=== PATIENT | male | born 1980 | race Caucasian/White ===

== ENCOUNTER 2019-12-10 19:30 | Emergency (ER) | payer OTHER, SELFPAY ==
[2019-12-10 19:31] VITALS: BP 152/87; PULSE 78; RESP 18; TEMP 37.1; O2SAT 99; BMI 27.3
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
[2019-12-10] MEDS: Acetaminophen 325 MG Tablet 650 MG PO (20:23)
--- NOTE | 2019-12-10 20:35 | ED.RN ---
pt aware [facility] is here for . dr. javier aware pt wants to leave post [facility] pt un[facility]ed and taken post scans to see . IV removed while in room 2 with . ambulates out of er with mother at 2024
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
== END 2019-12-10 20:49 | disposition home or self-care (01) ==
PROVIDERS: Emergency Provider Emergency Medicine; PCP Family Medicine
DX: R51 Headache (principal); S20.211A Contusion of right front wall of thorax, initial encounter; V89.2XXA Person injured in unspecified motor-vehicle accident, traffic, initial encounter
CPT/HCPCS: 70450; 71046; 99283

== ENCOUNTER 2021-02-28 16:50 | Emergency (ER) | payer OTHER, SELFPAY ==
[2021-02-28 16:52] VITALS: BP 152/87; PULSE 74; RESP 16; TEMP 36.1; O2SAT 100; BMI 25.2
--- NOTE | 2021-02-28 17:11 | CT_ITS ---
STUDY: CTA CHEST REASON FOR EXAM: Male, 40 years old. Shortness of breath. COVID positive. Pleuritic pain. RADIATION DOSAGE (If Supplied By Facility): CTDIvol = ( 12.94 ) mGy, DLP = ( 463.08 ) mGycm TECHNIQUE: The examination was performed with the intravenous administration of IV 100mL Isovue-370. Post-processing of the angiographic images was performed, with multiplanar reformation and 3D reconstruction. Individualized dose optimization techniques were used for this CT. COMPARISON: Chest, 12/10/2019. FINDINGS: Normal enhancement of the main pulmonary artery and right and left pulmonary arteries. Normal enhancement of the bilateral peripheral pulmonary arteries. There is no demonstrated pulmonary embolism. Normal thoracic aorta and visualized great vessels. There is no demonstrated aortic dissection. Normal heart and pericardium. Normal mediastinum. Normal hilar regions. Normal visualized trachea and bronchi. The lungs are well expanded. Dependent changes versus early groundglass infiltrate posteriorly at the right lung base. Lungs are otherwise clear. Normal pleura. Normal chest wall structures. Normal osseous structures. Normal visualized upper abdomen. CT/CTA Chest W/WO Contrast IMPRESSION: 1. No evidence of pulmonary embolus. 2. No aortic dissection or aneurysm. 3. Dependent changes versus early infiltrate peripherally at the right lung base. Electronically Signed: Luis Eduardo Davis DO at 18:38 EDT Tel [phone], Service support ,
--- NOTE | 2021-02-28 17:11 | EKG12_ITS ---
Test Reason : SOB Blood Pressure : / mmHG Vent. Rate : 074 BPM Atrial Rate : 074 BPM P-R Int : 144 ms QRS Dur : 110 ms QT Int : 408 ms P-R-T Axes : 055 064 045 degrees QTc Int : 452 ms Normal sinus rhythm Normal ECG Confirmed by ABBY MARTINEZ, CRISTAL ([id number]), graphics editor TYLOR TREVINO ([id number]) on 03/05/2021 7:47:40 AM Referred By: OMAR Confirmed By:CRISTAL MORA MD
--- NOTE | 2021-02-28 17:12 | EX.ED.DYSGE1 ---
HPI History of Present Illness Chief Complaint: Shortness of Breath Informant: patient Onset/Context/Timing Onset: Yesterday Current Severity: Moderate Maximum Severity: Moderate Narrative Narrative: Patient presents secondary to increased shortness of breath with positive Covid status. Patient states he developed symptoms of Covid and tested positive on February 17. He states yesterday he noted sharp pain across his back and felt like he could not get a deep breath. Symptoms continued today. He denies significant fevers but states he will get hot flashes that last 15 or 20 seconds at a time and then seem to go away. No vomiting or diarrhea. He denies leg pain or swelling. He states he has been trying to get up and ambulate while has been sick. PFSH PFSH Medical History no medical history no medical history Home Medications dexamethasone [Decadron] 6 mg PO DAILY #10 tab 02/28/21 [Rx Last Taken Unknown] hydrocodone-acetaminophen 1 tab PO Q6H PRN 3 Days #10 tab 02/28/21 [Rx Last Taken Unknown] Allergy/AdvReac Type Severity Reaction Status Date / Time Penicillins [PCN] Allergy Rash Verified 02/28/21 16:51 Surgical History no surgical history Social History Smoking Status: Never smoker ROS ROS ED Constitutional Constitutional ED: Reports fever(s) and subjective; Denies chills Eyes Eyes: Denies change in vision ENT ENT ED: Denies sore throat Cardiovascular Cardiovascular: Denies chest pain Respiratory/Chest Respiratory/Chest: Reports cough and dyspnea Gastrointestinal Gastrointestinal: Denies abdominal pain, diarrhea, nausea or vomiting Genitourinary Genitourinary ED: Denies dysuria Musculoskeletal Musculoskeletal: Reports back pain and myalgias Integumentary Denies rash Neurologic Neurologic: Denies headache(s) or weakness Allergic/Immunologic Allergic/Immunologic ED: Denies urticaria EXAM Physical Exam Const Vital Signs: 02/28/21 16:52 02/28/21 17:31 02/28/21 19:13 Temperature 96.9 F L Temperature Source Temporal Pulse Rate 74 Respiratory Rate 16 Respiratory Effort Normal Non-Labored Respiratory Depth Normal Respiratory Pattern Normal Blood Pressure 152/87 H Blood Pressure Mean 108 Pulse Ox 100 95 Oxygen Delivery Method Room Air Room Air 02/28/21 20:08 Temperature Temperature Source Pulse Rate 64 Respiratory Rate 12 Respiratory Effort Respiratory Depth Respiratory Pattern Blood Pressure 142/87 H Blood Pressure Mean Pulse Ox 98 Oxygen Delivery Method Positive well nourished and well developed General Appearance ED: well developed HEENT Reports normocephalic and head/scalp atraumatic Eyes PERRL and EOMs intact bilaterally Neck supple Chest Wall inspection of chest normal and palpation of chest normal Resp normal respiratory effort and clear to auscultation bilaterally Cardio regular rate and regular rhythm GI normal to inspection, nondistended, normoactive bowel sounds Palpation: soft Extremity normal to inspection Neuro oriented x3 and no sensory deficits noted Sensorium / Orientation: alert Motor Exam: strength 5/5 throughout Psych mental status grossly normal Skin no rashes or lesions noted MDM MDM MDM Narrative Medical decision making narrative: Patient placed on monitor and storage bin tender. EKG obtained. Lab work and CTA chest ordered. Patient given a dose of Toradol for body aches. Lab Data Attestation: I reviewed the patient's lab results. Labs: Laboratory Results - last 24 hr 02/28/21 02/28/21 02/28/21 17:30 17:30 17:30 WBC 4.7 RBC 5.39 Hgb 15.0 Hct 44.7 MCV 82.9 MCH 27.8 MCHC 33.6 RDW Std Deviation 40.7 RDW Coeff of Alexandro 13.4 Plt Count 204 MPV 10.1 Immature Gran % (Auto) 0.400 Neut % (Auto) 57.9 Lymph % (Auto) 29.9 Emmons % (Auto) 10.5 H Eos % (Auto) 0.9 Baso % (Auto) 0.4 Absolute Neuts (auto) 2.7 Absolute Lymphs (auto) 1.39 Nucleated RBC % 0 Sodium 138 Potassium 3.9 Chloride 100 Carbon Dioxide 30.0 Anion Gap 8 BUN 13 Creatinine 1.06 Estim Creat Clear Calc 103.71 Est GFR (MDRD) Af Amer 100 Est GFR (MDRD) Non-Af 83 BUN/Creatinine Ratio 12.3 Glucose 87 Lactic Acid 0.9 Calcium 9.1 Radiography Diagnostic Testing: Clinical Impression(s) from Imaging Studies Chest CTA 02/28/21 17:11 IMPRESSION: 1. No evidence of pulmonary embolus. 2. No aortic dissection or aneurysm. 3. Dependent changes versus early infiltrate peripherally at the right lung base. Electronically Signed: Luis Eduardo Davis DO at 18:38 EDT Tel [phone], Service support , EKG Initial EKG: Attestation: I personally reviewed and interpreted this EKG as follows: Interpretation: Sinus Rhythm (Sinus at 74 with no acute ischemia.) Treatment and Re-Evaluation Comments:: Repeat evaluation patient resting comfortably. O2 sats remained in the high 90s. Lab work reviewed and unremarkable. CTA reveals no evidence of PE. Dependent changes versus early infiltrate noted at the right lung base. Test results discussed with the patient. We discussed importance of deep breathing to prevent atelectasis. Patient will be treated with a course of Decadron and given a few tabs of Thorndike for pain control. Discharge Plan Triage Chief Complaint: Shortness of Breath ED Provider: Alma Juarez Dx/Rx/DC Orders Clinical Impression: COVID-19, Back pain Instructions: Coronavirus Disease 2019 (COVID-19): Caring for Yourself or Others, ED Back Pain (Acute or Chronic) Prescriptions: New dexamethasone [Decadron] 6 mg tablet 6 mg PO DAILY Qty: 10 RF: 0 hydrocodone-acetaminophen 5-325 mg tablet 1 tab PO Q6H PRN (Reason: pain) 3 Days Qty: 10 RF: 0 Primary Care Provider: Hadley Parker Referrals: Hadley Parker MD [Primary Care Provider] - 1-2 Weeks Disposition Disposition: Home, Self Care Discharge Date/Time: 02/28/21 20:08
--- NOTE | 2021-02-28 17:18 | NURSING ---
NO OLD EKGS
[2021-02-28 17:31] VITALS: O2SAT 100
[2021-02-28] MEDS: Ketorolac 30 MG/ML Syringe IV (17:42)
[2021-02-28 17:43] LABS: Absolute Lymphocyte Count 1.39 X10^3/uL (0.83-4.51); Absolute Neutrophil Count 2.7 X10^3/uL (2.0-7.7); Basophil# 0.02 X10^3/uL; Basophil% 0.4 % (0-1); Eosinophil# 0.04 X10^3/uL; Eosinophils% 0.9 % (0-5); Hematocrit 44.7 % (40-54); Lymphocyte # 1.39 X10^3/ul (0.83-4.51); Lymphocyte % 29.9 % (19-41); Mean Corp Hgb Conc 33.6 g/dL (32-36); Mean Corpuscular Hgb 27.8 pg (27.0-32.0); Mean Corpuscular Volume 82.9 fL (80-94); Mean Platelet Vol. 10.1 fl (6.2-12.0); Monocyte# 0.49 X10^3/uL; Monocyte% 10.5 % (0-10); NRBC Flagged by Analyzer 0 % (0-5); Neutrophil # 2.69 X10^3/uL (2.7-7.7); Neutrophil % 57.9 % (47-70); Platelet Count 204 K/mm3 (150-450); RBC Distribution Width CV 13.4 % (11.6-14.6); RBC Distribution Width SD 40.7 fl (35.1-43.9); Red Blood Count 5.39 M/mm3 (4.6-6.2); White Blood Count 4.7 K/mm3 (4.4-11.0)
[2021-02-28 17:56] LABS: Anion Gap 8 (5-15); BUN 13 mg/dL (7-18); BUN/Creat Ratio 12.3 RATIO (10-20); Calcium,Total 9.1 mg/dL (8.5-10.1); Chloride 100 mmol/L (98-107); Creatinine, Serum 1.06 mg/dL (0.70-1.30); EST Glomerular Filtration Rate 83 mL/min (>60); Est Glom Filt Rate - Afr Amer 100 mL/min (>60); Estimated Creatinine Clearance 103.71 ml/min; Glucose 87 mg/dL (74-106); Potassium 3.9 mmol/L (3.5-5.1); Sodium Level 138 mmol/L (136-145)
[2021-02-28 18:04] LABS: Lactic Acid 0.9 mmol/L (0.4-1.9)
[2021-02-28 19:13] VITALS: O2SAT 95
[2021-02-28 20:08] VITALS: BP 142/87; PULSE 64; RESP 12; O2SAT 98
== END 2021-02-28 20:08 | disposition home or self-care (01) ==
PROVIDERS: Emergency Provider Emergency Medicine; PCP Family Medicine
DX: U07.1 COVID-19 (principal); M54.9 Dorsalgia, unspecified
CPT/HCPCS: 71275; 80048; 83605; 85025; 87040; 93005; 96374; 99285; Q9967; A4216